=== PATIENT | female | born 2000 | race Caucasian/White ===

== ENCOUNTER 2024-03-07 11:07 | Emergency (ER) | payer SELFPAY ==
[2024-03-07] VITALS (8 sets, daily range): BP systolic 112–130; BP diastolic 64–100; PULSE 56–96; RESP 16–20; TEMP 37.1; O2SAT 98–100; BMI 32.4
--- NOTE | 2024-03-07 11:21 | US_ITS ---
PROCEDURE INFORMATION: Exam: US , Transvaginal and US Duplex Artery and Vein, Ovaries, Complete Exam date and time: 03/07/2024 11:41 AM Age: 23 years old Clinical indication: Other: Pelvic pain; Gestational age or lmp: 8w0d; ; Additional info: Preg R suprapubic pain LABS AND CLINICAL REPORTS: Last menstrual period start date: 01/11/2024 Gestational age (Established): 8 w 0 d Estimated due date (Established): 10/17/2024 TECHNIQUE: Imaging protocol: Real-time transvaginal obstetrical ultrasound of the maternal pelvis and a first trimester with image documentation. Transvaginal imaging was used for better evaluation of the fetus, adnexa, and/or cervix. Real-time duplex ultrasound scan of the arterial and venous flow of the ovaries with B-mode, color Doppler flow and spectral waveform analysis, Complete Duplex. Duplex exam was performed to evaluate for torsion and other vascular conditions. COMPARISON: No relevant prior studies available. FINDINGS: GESTATION: Gestation: Yolk sac measures 6.7 mm. heart rate: 174 bpm Extra-embryonic membranes/Placenta: Not evaluated due to early gestation. Amniotic fluid: Not evaluated due to early gestation. Subchorionic hemorrhage: Small subchorionic-perigestational bleed measuring approximately less than 10% by volume compared to gestational sac size. BIOMETRY: Gestational age (AUA): 8 w 5 d Estimated due date (AUA): 10/12/2024 [place] rump length (CRL): 20.02 mm. EGA (CRL) is 8 w 4 d MATERNAL: Cervix: Cervical length 3.9 cm with anechoic fluid within the endocervical canal. Right ovary/adnexa: Right ovary measures 3.34 cm x 2.54 cm x 2.07 cm. Right ovarian volume is 9.19 mL. Dominant simple anechoic ovarian functional cyst/follicle measuring approximately 2.0 cm. Left ovary/adnexa: Left ovary measures 1.88 cm x 1.54 cm x 2.26 cm. Left ovarian volume is 3.43 mL. Doppler: Doppler examination of the ovaries with pulsed wave and color images was performed which demonstrate arterial/venous waveforms within normal limits. Intraperitoneal space: No free fluid in the pelvis. IMPRESSION: 1. Single LIVE intrauterine gestation with small subchorionic bleed. 2. Normal ovaries demonstrating blood flow on Doppler.
--- NOTE | 2024-03-07 11:21 | HMH.EDGENADL ---
Discharge Plan Disposition Patient Disposition: Home, Self-Care Chief Complaint: OB/Uterine Contractions Prescriptions Prescriptions: No Action ondansetron 4 MG tablet,disintegrating 4 mg PO Q8HP PRN (Reason: nausea/vomiting) Qty: 10 0RF Referrals Follow up/Referrals: Mario Huggins APRN [Primary Care Provider] - See instructions Activity Restrictions/Add. Instructions Additional Instructions/Restrictions: At this time it was felt you are safe to be discharged home. If new or worsening symptoms please do not hesitate to return the emergency department. You have a subchorionic hematoma on your ultrasound today which is a small amount of blood around the . There is nothing to do for this except for keep an eye on it. The results of your swabs are pending for infection and will be followed up on. For nausea and vomiting I recommend buying doxylamine and taking 12.5 mg every 8 hours, buy vitamin B6 (pyridoxine) and take 10 mg every 8 hours. Take this for multiple days to see if it helps her symptoms and if it does you should likely continue this. Clinical Impressions Clinical Impression: , threatened, Subchorionic hematoma Print Language Print Language: [place] Discharge ED Provider: Alli Carr General Adult HPI <Fuad Cha MD - Last Filed: 03/07/24 15:04> General Chief complaint: OB/Uterine Contractions Stated complaint: 8 weeks cramping weakness Time Seen by Provider: 03/07/24 11:09 History of Present Illness HPI narrative: Patient is a 23-year-old female G1, P2 suspected currently last menstrual January 10 who presents emergency department for evaluation of suprapubic discomfort and vaginal discharge in the setting of positive test. Onset was acute, over the last 24 hours, discharge is pink and frothy, no clots. There is suprapubic and right lower quadrant discomfort. Previous pelvic surgical history of D&C for miscarriage with retained products of conception. She has had no intra-abdominal surgeries. She has had vomiting throughout the that has been treated with Zofran with partial effect for which she has persistent nonbloody vomiting. Last bowel movement in the last 24 hours. When asking about her previous history she states she has had recurrent yeast infections however they are typically white discharge and not associated with any pain. She has 1 sexual partner. No other acute complaints at this time Related Data Previous Rx's ?Medication ?Instructions ?Recorded ondansetron 4 mg disintegrating 4 mg PO Q8HP PRN nausea/vomiting 09/14/17 tablet ##10 Allergies Allergy/AdvReac Type Severity Reaction Status Date / Time Sulfa (Sulfonamide Allergy Hives Verified 03/07/24 11:33 Antibiotics) FORMERLY [facility], 1928–1983 <Fuad Cha MD - Last Filed: 03/07/24 15:04> FORMERLY [facility], [facility] Disclaimer: The information contained in this section may have been updated after the patient was seen, as this information can be updated by other users. Medical History (Updated 03/07/24 @ 14:06 by Fuad Cha MD) Spontaneous at 8 to 28 weeks gestation Vaginal delivery Social History (Updated 03/07/24 @ 11:30 by Elaina Walters RN) Smoking Status: Never smoker second hand exposure: No alcohol intake: never current occupational status: employed Travel in the last 8 weeks: None Have you lived/traveled outside [place] in past 30 days?: No Contact w/someone who lives/traveled outside US past 30 days?: No Exposure to someone with infectious disease in past 14 days?: No Do you have a fever (greater than 100.4 F or 38 C)?: No Have you tested positive for COVID-19: No Exposed to someone with COVID-19 in past 14 days?: No Do you have a sore throat?: No Do you have a cough?: No Do you have any weakness?: No Do you have any diarrhea?: No Are you experiencing any unusual bleeding?: No Do you have any muscle aches/pain?: No Do you have any abdominal pain?: No Are you experiencing loss of taste or smell?: No Other Medical History Have you received the Flu Vaccine for this season: Yes Have you received the Pneumonia Vaccine: No <Fuad Cha MD - Last Filed: 03/07/24 15:04> ROS Obtained: Yes Systems reviewed as appropriate & no additional complaints except as documented Physical Exam <Fuad Cha MD - Last Filed: 03/07/24 15:04> General General appearance: alert and in no apparent distress Head Head exam: atraumatic and normocephalic Eye Eye exam: Present PERRL ENT ENT exam: Present mucous membranes moist Neck Neck exam: Present normal inspection Chest Chest inspection: Present normal inspection and symmetric chest wall rise Respiratory Respiratory exam: Present normal lung sounds bilaterally; Absent respiratory distress Cardiovascular Cardiovascular exam: Present regular rate and normal rhythm Abdominal Exam Abdominal exam: Present soft and tenderness (Mild, suprapubic and right lower quadrant); Absent guarding, rebound or rigidity Extremities Exam Extremities exam: Present normal inspection Neurological Exam Neurological exam: Present alert Psychiatric Psychiatric exam: Present normal affect Skin Skin exam: Present warm and dry Medical Decision Making <Fuad Cha MD - Last Filed: 03/07/24 15:04> Medical Records Screening: Per USPSTF and CDC recommendations, given the prevalence of disease in our region, it is our hospital?s policy to screen for HIV and viral Hepatitis for all patients aged 18 and over and those with ongoing risk factors. David Inquiry Pt receiving controlled substance: No Vital Signs: 03/07/24 11:12 03/07/24 11:21 03/07/24 13:01 Temperature 98.8 F Temperature Source Oral Pulse Rate 96 H 56 L Pulse Rate [Right Brachial] 89 Respiratory Rate 16 Blood Pressure 118/89 120/100 H Blood Pressure [Right Arm] 118/89 Blood Pressure Mean Blood Pressure Mean [Right Arm] 98 Blood Pressure Source [Right Arm] Automatic Cuff Blood Pressure Position [Right Arm] Sitting 02 Sat by Pulse Oximetry 99 98 100 Oxygen Delivery Method Room Air Room Air Room Air 03/07/24 13:30 03/07/24 15:00 03/07/24 15:30 Temperature Temperature Source Pulse Rate 59 L 57 L 61 Pulse Rate [Right Brachial] Respiratory Rate Blood Pressure 121/64 121/72 130/70 Blood Pressure [Right Arm] Blood Pressure Mean 78 Blood Pressure Mean [Right Arm] Blood Pressure Source [Right Arm] Blood Pressure Position [Right Arm] 02 Sat by Pulse Oximetry 99 100 100 Oxygen Delivery Method Room Air 03/07/24 16:01 Temperature Temperature Source Pulse Rate 65 Pulse Rate [Right Brachial] Respiratory Rate Blood Pressure 112/83 Blood Pressure [Right Arm] Blood Pressure Mean Blood Pressure Mean [Right Arm] Blood Pressure Source [Right Arm] Blood Pressure Position [Right Arm] 02 Sat by Pulse Oximetry 100 Oxygen Delivery Method Room Air Lab Data Lab Results 03/07/24 11:23: WBC 8.7, RBC 5.02, Hgb 14.9, Hct 42.7, MCV 85.1, MCH 29.7, MCHC 34.9, RDW 12.5, Plt Count 261, MPV 9.3, Neut % (Auto) 74.6, Lymph % (Auto) 19.5, [place] % (Auto) 5.4, Eos % (Auto) 0.2, Baso % (Auto) 0.1, Neut # (Auto) 6.5, Lymph # (Auto) 1.7, [place] # (Auto) 0.5, Eos # (Auto) 0.0, Baso # (Auto) 0.0, Sodium 138, Potassium 3.8, Chloride 105, Carbon Dioxide 22, Anion Gap 14.8, BUN 7, Creatinine 0.60, Estimated Creat Clear 197, Estimated GFR 122, Est GFR ( Amer) 147, Glucose 88, Calcium 9.7, Total Bilirubin 1.0, AST 27, ALT 19, Alkaline Phosphatase 72, C-Reactive Protein 5.6 H, Total Protein 7.5, Albumin 4.9, Globulin 2.6, Albumin/Globulin Ratio 1.9 H, HCG, Quant 247160 H, HIV Ag/Ab Combo Qual Negative 03/07/24 11:23 03/07/24 11:23 Orders (Tests/Meds): ED MEDICATIONS Discontinued Medications Generic Name Dose Route Start Last Admin Trade Name Freq PRN Reason Stop Dose Admin Acetaminophen 1,000 mg 03/07/24 11:20 03/07/24 11:29 Acetaminophen 500mg Tab PO 03/07/24 11:21 1,000 mg ONCE ONE Administration Doxylamine Succinate/Pyridoxine 1 tab 03/07/24 11:20 03/07/24 11:32 Doxylamine 10mg/Pyridoxine 10mg Tablet PO 03/07/24 11:21 1 tab ONCE ONE Administration Lactated Ringer's 1,000 mls @ 999 mls/hr 03/07/24 11:20 03/07/24 11:29 Lactated Ringer's 1000 Ml Bag IV 03/07/24 12:20 999 mls/hr .Q1H1M ONE Administration ORDERS Category Date Time Status CBC w/Auto Diff [Complete Blood Count Auto Diff] Stat Lab 03/07/24 11:23 Completed CMP [Comprehensive Metabolic Panel] Stat Lab 03/07/24 11:23 Completed CRP [C-Reactive Protein] Stat Lab 03/07/24 11:23 Completed HCG,Quantitative Stat Lab 03/07/24 11:23 Completed HIV Combo Stat Lab 03/07/24 11:23 Completed Hep C Ab with Reflex to RNA Stat Lab 03/07/24 11:23 Received Rapid PCR Covid and Flu A/B Stat Lab 03/07/24 15:46 Received Trichomonas Vaginalis, CONNOR Stat Lab 03/07/24 11:25 Received UA [Urinalysis and Microscopic] Stat Lab 03/07/24 11:28 Ordered US OB transvaginal Stat Ultrasound 03/07/24 11:21 Completed Medical Decision Narrative: In summary patient is a 23-year-old female with past medical history described above who presents emergency department for evaluation of suprapubic and right lower quadrant abdominal discomfort in the setting of suspected . Patient is hemodynamically stable nontoxic-appearing upon arrival, afebrile. Differential diagnosis includes physiologic , urinary tract infection, STI, appendicitis, ectopic , among others. Workup be conducted with hematologic labs, transvaginal ultrasound, urinalysis, vaginal swabs. Initial inventions include Tylenol, Diclegis, crystalloid bolus. Initial work reviewed by me, no significant leukocytosis no CHANA or critical electrolyte abnormality CRP 5.6 hCG 177,260. Transvaginal ultrasound formal read single live intrauterine gestation with small subchorionic bleed, normal ovaries demonstrating blood flow on Doppler. Given the patient is tender in the right lower quadrant appendicitis remains on the differential for which the case was discussed with Dr. Davies regarding management we will proceed with MRI of the abdomen and pelvis at this time given that is the only thing that will require patient's admission. The patient was placed in observation status at 1:32 PM. Medical necessity for observational status is MRI exam of the abdomen pelvis in the setting of right lower quadrant abdominal pain in . MRI and repeat evaluation pending at time of transfer of care to the oncoming physician, Dr. Carr. Lilly: The patient was provided serial reevaluations [and cardiac monitoring] while awaiting results. [Results of testing during observation are remarkable for:]. [Because of these results I feel patient can be discharged with follow-up with their PCP versus feel patient requires admission due to]. Total time in observation was [total time]. Procedure: Procedure performed was vaginal exam with specimen recovery. Procedure performed by Fuad Cha. Chaperoned by nursing present throughout the exam. Using lighted speculum was advanced into the introitus, no external vaginal lesions. There was discharge in the posterior vaginal vault, cervix is closed, there appears to be red discoloration over parts of the cervix, is tender. Swabs of the discharge were obtained and sent off to laboratory. Patient tolerated the procedure well. There were no immediate complications. <Alli Carr MD - Last Filed: 03/07/24 16:41> Vital Signs: 03/07/24 11:12 03/07/24 11:21 03/07/24 13:01 Temperature 98.8 F Temperature Source Oral Pulse Rate 96 H 56 L Pulse Rate [Right Brachial] 89 Respiratory Rate 16 Blood Pressure 118/89 120/100 H Blood Pressure [Right Arm] 118/89 Blood Pressure Mean Blood Pressure Mean [Right Arm] 98 Blood Pressure Source [Right Arm] Automatic Cuff Blood Pressure Position [Right Arm] Sitting 02 Sat by Pulse Oximetry 99 98 100 Oxygen Delivery Method Room Air Room Air Room Air 03/07/24 13:30 03/07/24 15:00 03/07/24 15:30 Temperature Temperature Source Pulse Rate 59 L 57 L 61 Pulse Rate [Right Brachial] Respiratory Rate Blood Pressure 121/64 121/72 130/70 Blood Pressure [Right Arm] Blood Pressure Mean 78 Blood Pressure Mean [Right Arm] Blood Pressure Source [Right Arm] Blood Pressure Position [Right Arm] 02 Sat by Pulse Oximetry 99 100 100 Oxygen Delivery Method Room Air 03/07/24 16:01 Temperature Temperature Source Pulse Rate 65 Pulse Rate [Right Brachial] Respiratory Rate Blood Pressure 112/83 Blood Pressure [Right Arm] Blood Pressure Mean Blood Pressure Mean [Right Arm] Blood Pressure Source [Right Arm] Blood Pressure Position [Right Arm] 02 Sat by Pulse Oximetry 100 Oxygen Delivery Method Room Air Lab Data Lab Results 03/07/24 11:23: WBC 8.7, RBC 5.02, Hgb 14.9, Hct 42.7, MCV 85.1, MCH 29.7, MCHC 34.9, RDW 12.5, Plt Count 261, MPV 9.3, Neut % (Auto) 74.6, Lymph % (Auto) 19.5, [place] % (Auto) 5.4, Eos % (Auto) 0.2, Baso % (Auto) 0.1, Neut # (Auto) 6.5, Lymph # (Auto) 1.7, [place] # (Auto) 0.5, Eos # (Auto) 0.0, Baso # (Auto) 0.0, Sodium 138, Potassium 3.8, Chloride 105, Carbon Dioxide 22, Anion Gap 14.8, BUN 7, Creatinine 0.60, Estimated Creat Clear 197, Estimated GFR 122, Est GFR ( Amer) 147, Glucose 88, Calcium 9.7, Total Bilirubin 1.0, AST 27, ALT 19, Alkaline Phosphatase 72, C-Reactive Protein 5.6 H, Total Protein 7.5, Albumin 4.9, Globulin 2.6, Albumin/Globulin Ratio 1.9 H, HCG, Quant [id number] H, HIV Ag/Ab Combo Qual Negative Orders (Tests/Meds): ED MEDICATIONS Discontinued Medications Generic Name Dose Route Start Last Admin Trade Name Freq PRN Reason Stop Dose Admin Acetaminophen 1,000 mg 03/07/24 11:20 03/07/24 11:29 Acetaminophen 500mg Tab PO 03/07/24 11:21 1,000 mg ONCE ONE Administration Doxylamine Succinate/Pyridoxine 1 tab 03/07/24 11:20 03/07/24 11:32 Doxylamine 10mg/Pyridoxine 10mg Tablet PO 03/07/24 11:21 1 tab ONCE ONE Administration Lactated Ringer's 1,000 mls @ 999 mls/hr 03/07/24 11:20 03/07/24 11:29 Lactated Ringer's 1000 Ml Bag IV 03/07/24 12:20 999 mls/hr .Q1H1M ONE Administration ORDERS Category Date Time Status CBC w/Auto Diff [Complete Blood Count Auto Diff] Stat Lab 03/07/24 11:23 Completed CMP [Comprehensive Metabolic Panel] Stat Lab 03/07/24 11:23 Completed CRP [C-Reactive Protein] Stat Lab 03/07/24 11:23 Completed HCG,Quantitative Stat Lab 03/07/24 11:23 Completed HIV Combo Stat Lab 03/07/24 11:23 Completed Hep C Ab with Reflex to RNA Stat Lab 03/07/24 11:23 Received Rapid PCR Covid and Flu A/B Stat Lab 03/07/24 15:46 Received Trichomonas Vaginalis, CONNOR Stat Lab 03/07/24 11:25 Received UA [Urinalysis and Microscopic] Stat Lab 03/07/24 11:28 Ordered US OB transvaginal Stat Ultrasound 03/07/24 11:21 Completed Medical Decision Narrative: In summary patient is a 23-year-old female with past medical history described above who presents emergency department for evaluation of suprapubic and right lower quadrant abdominal discomfort in the setting of suspected . Patient is hemodynamically stable nontoxic-appearing upon arrival, afebrile. Differential diagnosis includes physiologic , urinary tract infection, STI, appendicitis, ectopic , among others. Workup be conducted with hematologic labs, transvaginal ultrasound, urinalysis, vaginal swabs. Initial inventions include Tylenol, Diclegis, crystalloid bolus. Initial work reviewed by me, no significant leukocytosis no CHANA or critical electrolyte abnormality CRP 5.6 hCG 177,260. Transvaginal ultrasound formal read single live intrauterine gestation with small subchorionic bleed, normal ovaries demonstrating blood flow on Doppler. Given the patient is tender in the right lower quadrant appendicitis remains on the differential for which the case was discussed with Dr. Davies regarding management we will proceed with MRI of the abdomen and pelvis at this time given that is the only thing that will require patient's admission. The patient was placed in observation status at 1:32 PM. Medical necessity for observational status is MRI exam of the abdomen pelvis in the setting of right lower quadrant abdominal pain in . MRI and repeat evaluation pending at time of transfer of care to the oncoming physician, Dr. Carr. Lilly: The patient was provided serial reevaluations while awaiting results. Independent interpretation of MRI performed during observation period significant for no appendicitis. Nonactionable CBC or chemistry with hCG nearly 180,000. On my initial evaluation around 4 PM, patient still has not provided clean urine sample. 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 Because MRI is negative, nonactionable workup, I feel she is appropriate to follow-up outpatient. Patient declining giving urine sample prior to leaving. Total time in observation was 3 hours. Discs for MRI and reads were sent with patient. Because patient at baseline without signs or symptoms of clinical decompensation, deemed appropriate for discharge. Results were relayed to patient who voiced understanding and were agreeable to outpatient management and follow up. I discussed my clinical impression with patient and answered all questions. At this time, the evidence for any other entities in the differential is insufficient to warrant any further testing or ED observation. This was explained as well. Advisory was given that persistent or worsening symptoms require further evaluation. I confirmed the understanding of this discussion. Procedure: Procedure performed was vaginal exam with specimen recovery. Procedure performed by Fuad Cha. Chaperoned by nursing present throughout the exam. Using lighted speculum was advanced into the introitus, no external vaginal lesions. There was discharge in the posterior vaginal vault, cervix is closed, there appears to be red discoloration over parts of the cervix, is tender. Swabs of the discharge were obtained and sent off to laboratory. Patient tolerated the procedure well. There were no immediate complications. Critical Care <Fuad Cha MD - Last Filed: 03/07/24 15:04> Critical Care Time Critical Care Time: No
[2024-03-07] MEDS: ACETAMINOPHEN 500MG TAB 1000 MG PO (11:29)
[2024-03-07] MEDS: LACTATED RINGERS 1000ML 1,000 ML 999 ML IV (11:29)
[2024-03-07 11:32] LABS: Basophils % 0.1 % (0.1-2.0); Eosinophils % 0.2 % (0.1-12.0); Hematocrit 42.7 % (37.0-47.0); Hemoglobin 14.9 g/dL (12.2-16.2); Lymphocytes # 1.7 K/mm3 (0.7-4.5); Lymphocytes % 19.5 % (10-50); Mean Corpuscular HGB Conc 34.9 g/dL (31.8-35.4); Mean Corpuscular Hemoglobin 29.7 pg (27.0-31.2); Mean Corpuscular Volume 85.1 fl (81-99); Mean Platelet Volume 9.3 fl (7.4-10.4); Monocytes # 0.5 K/mm3 (0.1-1.0); Monocytes % 5.4 % (1.7-9.3); Neutrophils # 6.5 K/mm3 (1.8-7.8); Neutrophils % 74.6 % (37.0-80.0); Platelet Count 261 K/mm3 (142-424); Red Blood Count 5.02 M/mm3 (4.20-5.40); Red Cell Distribution Width 12.5 % (11.5-17.5); White Blood Count 8.7 K/mm3 (4.8-10.8)
[2024-03-07] MEDS: DOXYLAMINE 10MG/PYRIDOXINE 10MG TABLET 1 TAB PO (11:32)
[2024-03-07 11:47] LABS: Alanine Aminotransferase 19 U/L (12-78); Albumin Level 4.9 g/dl (3.5-5.0); Albumin/Globulin Ratio 1.9 (1.1-1.8); Alkaline Phosphatase 72 U/L (38-126); Anion Gap 14.8 mEq/L (5-15); Aspartate Amino Transferase 27 U/L (14-36); Blood Urea Nitrogen 7 mg/dl (7-17); Calcium 9.7 mg/dl (8.4-10.2); Carbon Dioxide 22 mmol/L (22.0-30.0); Chloride 105 mmol/L (98-107); Creatinine Clearance Estimated 197 mL/min (50-200); Estimated Glomerular Filt Rate 122 ml/min (>60); GFR (African American) 147 ML/MIN (>60); Globulin 2.6 g/dL (1.3-3.2); Glucose 88 mg/dl (74-100); Potassium 3.8 mmoL/L (3.5-5.1); Sodium 138 mmol/L (136-145); Total Protein,Serum 7.5 g/dl (6.3-8.2)
[2024-03-07 11:51] LABS: C-Reactive Protein 5.6 mg/L (0-4)
[2024-03-07 12:39] LABS: HCG,Quantitative 177260 mIU/ml (0-5.42)
--- NOTE | 2024-03-07 13:25 | MR_ITS ---
FINAL REPORT TECHNIQUE: Multiplanar multisequence imaging of the abdomen was obtained without contrast. MRCP images were obtained as well. CLINICAL HISTORY: RLQ pain pt is 8 weeks FINDINGS: The liver is homogeneous. There is no focal hepatic lesion. The spleen is normal in size and signal intensity. The adrenal glands and pancreas are unremarkable. The kidneys are without mass or hydronephrosis. Limited evaluation of the abdominal GI tract is within normal limits. There is no ascites or lymphadenopathy. The gallbladder is present. The common duct is normal in size. There is no common duct filling defect or stricture. The pancreatic duct appears normal. IMPRESSION: Unremarkable MRCP. Reviewed, Interpreted and Dictated by Delia Rosas MD Transcribed by Ale Headley Authenticated and [facility]
--- NOTE | 2024-03-07 13:25 | MR_ITS ---
FINAL REPORT CLINICAL HISTORY: RLQ abdominal pain preg, ruleout appy pt is 8 weeks preg COMPARISON: None FINDINGS: Multiplanar and multisequence imaging of the pelvis was obtained without contrast. The uterus is enlarged and gravid. Evaluation of the fetus is very limited due to early gestational age. There is a 21 mm right ovarian cyst, likely corpus luteal cyst. The left ovary is unremarkable with tiny follicles. Evaluation of the right lower quadrant is limited secondary to motion. The appendix appears retrocecal and normal in caliber. There is no convincing surrounding abnormal signal intensity. The appendix is best seen on series 6, images 16-19. Visualized GI tract is without acute abnormality. There is a small amount of free fluid in the pelvis which could be physiologic. There is no evidence of lymphadenopathy. The remaining soft tissues are without acute abnormality. IMPRESSION: No convincing appendicitis. Gravid uterus. Small right ovarian cyst favor corpus luteal cyst. Reviewed, Interpreted and Dictated by Delia Rosas MD Transcribed by Ale Headley Authenticated and [facility]
[2024-03-07 13:40] LABS: HIV Combo NEGATIVE (Negative)
--- NOTE | 2024-03-07 15:28 | PC.NURSE ---
I rounded on the pt. no new complaints at this time. no needs voiced. call [facility] in reach. I updated them that we are currently awaiting results from radiology.
[2024-03-07 16:23] LABS: Coronavirus 19, PCR Not Detected (NotDetected); Influenza A, PCR Not Detected (NotDetected); Influenza B, PCR Not Detected (NotDetected)
[2024-03-07] MEDS: METOCLOPRAMIDE 10MG TABLET 10 MG PO (16:58)
[2024-03-08 06:13] LABS: HCV Ab Non Reactive (Non Reactive)
[2024-03-09 20:08] LABS: Neisseria gonorrhoeae, NAA Negative (Negative)
[2024-03-09 23:39] LABS: Trichomonas Vaginalis, NAA Negative (Negative)
== END 2024-03-07 17:03 | disposition home or self-care (01) ==
PROVIDERS: Emergency Medicine; Emergency Provider Emergency Medicine; PCP Nurse Practitioner
DX: O41.8X90 Other specified disorders of amniotic fluid and membranes, unspecified trimester, not applicable or unspecified (principal); O20.0 Threatened abortion; R10.31 Right lower quadrant pain
CPT/HCPCS: 72195; 74181; 76817; 80053; 84702; 85025; 86140; 86803; 87210; 87389; 87491; 87591; 87636; 87661; 96360; 99284; J7120